=== PATIENT | female | born 1975 | race American Indian/Alaskan Native ===

== ENCOUNTER 2018-04-16 08:05 | Outpatient (CLI) | payer MEDICAID ==
--- NOTE | 2018-04-16 09:06 | Cat Scan Report ---
CT ABDOMEN AND PELVIS WITHOUT CONTRAST INDICATION: Hydronephrosis. Calculus of kidney. COMPARISON: None similar at this institution. FINDINGS: Noncontrast abdomen and pelvis CT performed. LUNG BASES: Minimal lingular and right middle lobe scarring. ABDOMEN: Please note that sensitivity to detect small visceral lesions is limited due to the absence of intravenous or oral contrast. A small, 4-5 mm nonobstructing left renal calculus, axial series 2, image 73. Mild right hydronephrosis with AP renal pelvis diameter of 1.5 cm and proximal hydroureter noted secondary to 2 adjacent stones, individually measuring to the order of 3-4 mm and impacted in the right proximal to mid ureter, anterior to the right psoas muscle. Approximately 4 mm radiopaque gallstone. Otherwise grossly unremarkable unenhanced liver, spleen, pancreas, adrenals, aorta and IVC. Nonopacified GI tract evaluation limited, though grossly nonobstructive. Normal appendix. No ascites or size significant adenopathy. PELVIS: Grossly unremarkable non-opacified urinary bladder, rectosigmoid and uterus/adnexa. Few small pelvic phleboliths. No free fluid or significant adenopathy. Bilateral inguinal canal region mild fatty hernia like prominence as on axial image 182, amongst others. Mild bilateral hip and slight spinal degenerative changes. CONCLUSION: 1. Two 3-4 mm adjacent right proximal to mid ureteral calculi with mild right hydronephrosis noted, as described. 2. A small nonobstructing left upper renal calculus also identified. 3. Few other incidental findings as a small radiopaque gallstone, amongst others. I phoned the above results to Dr. Kam, 8:55 AM, 04/16/2018. Thank you for the opportunity to participate in this patient's care.
== END 2018-04-16 08:06 | disposition home or self-care (01) ==
LOC: CT 08:05
PROVIDERS: ATTEND Urology
DX: N13.30 Unspecified hydronephrosis (principal); M16.0 Bilateral primary osteoarthritis of hip; M46.80 Other specified inflammatory spondylopathies, site unspecified
CPT/HCPCS: 74176

== ENCOUNTER 2018-04-22 11:56 | Day surgery (SDC) | payer MEDICAID ==
[2018-04-22] MEDS ORDERED: ANCEF/STERILE WATER 2 GM/20 ML 2 GM/20 ML SYRINGE IV NR (12:00)
[2018-04-22] MEDS ORDERED: DILAUDID ONE (12:37)
[2018-04-22] MEDS ORDERED: XYLOCAINE MPF 2% ONE (12:37)
[2018-04-22] MEDS ORDERED: DIPRIVAN 10 MG/ML IV ONE (12:37)
[2018-04-22] MEDS ORDERED: ZEMURON IV ONE (12:37)
[2018-04-22] MEDS ORDERED: NACL BACTERIOSTATIC INFILTRATI ONE (13:15)
[2018-04-22] MEDS ORDERED: VERSED IV SCH (13:29)
[2018-04-22] MEDS ORDERED: LACTATED RINGERS 1,000 ML ONE (13:29)
--- NOTE | 2018-04-22 13:29 | Anesthesia Day of Surgery ---
Anesthesia Day of Surgery - Day of Surgery Patient Examined: Yes Patient H&P Reviewed: Yes Patient is NPO: Yes
--- NOTE | 2018-04-22 13:31 | Anesthesia Consultation ---
Anesthesia Consult and Med Hx Date of service: 04/22/18 - Airway Anesthetic Teeth Evaluation: Good ROM Head & Neck: Adequate Mental/Hyoid Distance: Adequate Mallampati Class: Class II Intubation Access Assessment: Probably Good - Pulmonary Exam CTA: Yes - Cardiac Exam Cardiac Exam: RRR - Pre-Operative Health Status ASA Pre-Surgery Classification: ASA2 Proposed Anesthetic Plan: General - Pulmonary Hx Smoking: Yes (1/3 PPD X 15 YRS) Hx Asthma: No Hx Respiratory Symptoms: No Hx Sleep Apnea: No (LEODAN PRE SCREEN LOW RISK.) - Cardiovascular System Hx Hypertension: No Hx Heart Attack/AMI: No - Central Nervous System Hx Neuromuscular Disorder: No Hx Seizures: No CVA: No - Gastrointestinal Hx Gastroesophageal Reflux Disease: Yes (diet controlled; asymptomatic today) - Endocrine Hx Renal Disease: Yes (kidney stones) Hx Liver Disease: No Hx Insulin Dependent Diabetes: No Hx Non-Insulin Dependent Diabetes: No Hx Thyroid Disease: No - Other Systems Hx Cancer: No Hx Obesity: Yes - Additional Comments Anesthesia Medical History Comments: PMH current smoker, kidney stones. No prior anesthetic complications.
[2018-04-22] MEDS ORDERED: ZOFRAN ONE (13:57)
[2018-04-22] MEDS ORDERED: LACTATED RINGERS 1,000 ML IV SCH (14:00)
[2018-04-22] MEDS ORDERED: ROBINUL ONE (14:39)
[2018-04-22] MEDS ORDERED: BLOXIVERZ ONE (14:39)
[2018-04-22] MEDS ORDERED: LASIX ONE (14:40)
--- NOTE | 2018-04-22 14:51 | Post Operative Note ---
Date of procedure: 04/22/18 Pre-op diagnosis: r ureteral stones Post-op diagnosis: same Findings: 2 stones Procedure: cysto ureteroscopy laser stent Anesthesia: GETA Surgeon: NEO JACKSON Estimated blood loss: none Pathology: list (stone) Specimen disposition: given to patient/family Condition: stable Disposition: PACU
--- NOTE | 2018-04-22 14:52 | Discharge Summary ---
Short Stay Discharge Plan Activity: other (no straining ) Weight Bearing Status: Full Weight Bearing Diet: regular, low salt Durable Medical Equipment Needed Upon Discharge: other (has j stnet ) Follow up with: PRIMARY CARE, [Primary Care Provider] - 7 Days NEO JACKSON MD [Staff Physician] - 7 Days
--- NOTE | 2018-04-22 15:34 | Operative Report ---
PREOPERATIVE DIAGNOSIS: Multiple right upper ureteral stone. POSTOPERATIVE DIAGNOSES: Multiple right upper ureteral stone. PROCEDURE: Cystoscopy, right retrograde, right flexible ureteroscopy after we finally were able to get two wires up in the kidney with laser of the distal stone, which was at L3 and partial laser of the proximal stone, which was imbedded underneath the epithelium and insertion of double-J stent. SURGEON: Hunter Kam MD ANESTHESIA: General. FINDINGS: This is a woman with intermittent right flank pain has two upper ureteral stones. Both of them were difficult to see on the x-ray and today we can see one of them. DESCRIPTION OF PROCEDURE: The patient was brought to the operating room and placed on the operating table. Following induction of anesthesia, placed in lithotomy position, prepped and draped in usual sterile fashion. Cystourethroscopy showed no bladder lesions. Bladder was well visualized with 30 and 70 degree lenses. Retrograde showed upper ureteral obstruction narrowing with 2 stones, one was visualized on the psychiatry teacher film. At this point, a flexible ureteroscope was inserted only after we can get the second safety wire in. This took manipulation with an open-ended catheters and finally we had two wires up in the kidney. The flexible ureteroscope was inserted and the distal stone was lasered at 8 dao and it was broken into 4 or 5 pieces. The proximal stone was embedded in the medial aspect of the ureter. Once we were able to with irrigation get rid of a little flap of tissue, we broke it in the center, but did not feel comfortable extracting anything. The patient tolerated the procedure well. At this point, we left a double-J stent 6-Korean, she may need a second stage procedure. We will leave the stent for 2 weeks and then may be bring her back to do a lithotripsy. She was brought to recovery in stable condition. JOB# [id number] WONG/MIRA
[2018-04-22] MEDS ORDERED: DILAUDID IV PRN (15:44)
[2018-04-22 17:23] VITALS: BP 139/89
--- NOTE | 2018-04-22 18:34 | Post Anesthesia Evaluation ---
- Post Anesthesia Evaluation Patient Participated: Yes Airway Patent: Yes Stable Respiratory Function: Yes Nausea/Vomiting: No Temp > 96.8F: Yes Pain Manageable: Yes Adequeate Hydration: Yes Anesthesia Complications: No Block Receding Appropriately: Not Applicable Patient on Ventilator: No
--- NOTE | 2018-04-23 07:54 | Fluoroscopy Report ---
FLUOROSCOPY RETROGRADE UROGRAPHY: HISTORY: Right ureteral stone. FINDINGS: Fluoroscopy was provided by radiology during retrograde urography by the urologist. 6 fluoroscopic images were captured. No left pyelogram images were submitted. The right pyelogram images demonstrate an obstructing stone in the proximal right ureter to the level of L3. Subsequent images demonstrate placement of a right ureteral stent which adequately drains the right collecting system. Per the operative notes, a laser was used to break up the right ureteral stone. Please correlate with the procedural report as needed. IMPRESSION: Right ureteral stone. Right ureteral stent placement.
== END 2018-04-22 17:09 | disposition home or self-care (01) ==
LOC: OR 11:56
PROVIDERS: ATTEND Urology
DX: N20.1 Calculus of ureter (principal); F17.210 Nicotine dependence, cigarettes, uncomplicated; Z88.2 Allergy status to sulfonamides; Z98.890 Other specified postprocedural states
CPT/HCPCS: 52356; 74420; 81025; C1726; C1758; C1769; C2617; J0690; J1170; J2250; J2405; J2704; J2710; J7120; Q9967; J1940

== ENCOUNTER 2018-06-04 09:31 | Day surgery (SDC) | payer MEDICAID ==
[2018-06-04] MEDS ORDERED: SUBLIMAZE IV PRN (10:25)
--- NOTE | 2018-06-04 10:28 | Anesthesia Day of Surgery ---
Anesthesia Day of Surgery - Day of Surgery Patient Examined: Yes Patient H&P Reviewed: Yes Patient is NPO: Yes
--- NOTE | 2018-06-04 10:28 | Anesthesia Consultation ---
Anesthesia Consult and Med Hx Date of service: 06/04/18 - Airway Anesthetic Teeth Evaluation: Good ROM Head & Neck: Adequate Mental/Hyoid Distance: Adequate Mallampati Class: Class II Intubation Access Assessment: Probably Good - Pulmonary Exam CTA: Yes - Cardiac Exam Cardiac Exam: RRR - Pre-Operative Health Status ASA Pre-Surgery Classification: ASA2 Proposed Anesthetic Plan: General - Pulmonary Hx Smoking: Yes (1/3 PPD X 15 YRS) Hx Asthma: No Hx Respiratory Symptoms: No Hx Sleep Apnea: No (LEODAN PRE SCREEN LOW RISK.) - Cardiovascular System Hx Hypertension: No Hx Heart Attack/AMI: No - Central Nervous System Hx Seizures: No CVA: No Hx Back Pain: Yes (from renal stone) - Gastrointestinal Hx Gastroesophageal Reflux Disease: Yes (diet controlled; asymptomatic today) - Endocrine Hx Renal Disease: No Hx Liver Disease: No Hx Insulin Dependent Diabetes: No Hx Thyroid Disease: No - Other Systems Hx Obesity: Yes - Additional Comments Anesthesia Medical History Comments: No prior anesthetic complications. Previous easy intubation. Will plan GA with LMA today.
[2018-06-04] MEDS ORDERED: SUBLIMAZE ONE ×2 (10:46→12:39)
[2018-06-04] MEDS ORDERED: XYLOCAINE MPF 2% ONE (10:46)
[2018-06-04] MEDS ORDERED: DIPRIVAN 10 MG/ML IV ONE (10:47)
[2018-06-04] MEDS ORDERED: VERSED IV NR (11:00)
[2018-06-04] MEDS ORDERED: ANCEF/STERILE WATER 2 GM/20 ML IV NR (11:00)
[2018-06-04] MEDS ORDERED: LACTATED RINGERS 1,000 ML IV SCH (11:00)
[2018-06-04] MEDS ORDERED: ANCEF/STERILE WATER 2 GM/20 ML 2 GM/20 ML SYRINGE IV NR (12:00)
[2018-06-04] MEDS ORDERED: ZOFRAN ONE (12:11)
[2018-06-04] MEDS ORDERED: DECADRON ONE (12:11)
[2018-06-04] MEDS ORDERED: OMNIPAQUE 300 MG/50 ML (CATH LAB) IV ONE (12:17)
--- NOTE | 2018-06-04 12:46 | Post Operative Note ---
Date of procedure: 06/04/18 Pre-op diagnosis: r upper ureteral stones Post-op diagnosis: same Findings: as above Procedure: cysto dil rpg ureteroscopy laser j stent Anesthesia: TETE Surgeon: NEO JACKSON Estimated blood loss: none Pathology: none Condition: stable Disposition: PACU
--- NOTE | 2018-06-04 12:48 | Discharge Summary ---
Short Stay Discharge Plan Activity: other (no straining ) Weight Bearing Status: Full Weight Bearing Diet: low fat, low salt Special Instructions: other (inc fluids has stent ) Durable Medical Equipment Needed Upon Discharge: other (j stent ) Follow up with: CELINA CRANE MD [Primary Care Provider] - 7 Days NEO JACKSON MD [Staff Physician] - 10 Days
--- NOTE | 2018-06-04 13:15 | Operative Report ---
PREOPERATIVE DIAGNOSIS: Multiple right upper ureteral stone. POSTOPERATIVE DIAGNOSIS: Multiple right upper ureteral stone. PROCEDURE: Second stage ureteroscopy. SURGEON: Hunter Kam MD ANESTHESIA: General. FINDINGS: This is a woman who had 2 significant stones in the upper ureter. The first one, we were able to get. The second one was imbedded in the epithelium, we left the stent, for which she now presents for second stage. DESCRIPTION OF PROCEDURE: The patient was brought to the operating room and placed on the operating table. Following induction of anesthesia, placed in lithotomy position, prepped and draped in usual sterile fashion. Cystourethroscopy showed the stent and it was partially withdrawn, a wire coiled in the kidney. Using the double access ureteral catheter, a second wire coiled in the kidney. Flexible ureteroscopy showed this to be tight, so we used the access sheath just the inner core and we were able to dilate that area to see the stone well. The stone was freed off the epithelium and lasered at 8 dao. Some fragments went up in the kidney, which were lasered in the kidney. The patient tolerated the procedure well. A 7-Scottish double J coiled in the kidney in good position. The patient tolerated the procedure well. There were no family members there. She was brought to recovery in stable condition with a 7-Scottish double J in good position. JOB# [id number] WONG/MIRA
--- NOTE | 2018-06-04 13:27 | Post Anesthesia Evaluation ---
- Post Anesthesia Evaluation Patient Participated: Yes Airway Patent: Yes Stable Respiratory Function: Yes Nausea/Vomiting: No Temp > 96.8F: Yes Pain Manageable: Yes Adequeate Hydration: Yes Anesthesia Complications: No
[2018-06-04 15:14] VITALS: BP 125/80
--- NOTE | 2018-06-05 07:49 | Fluoroscopy Report ---
FLUOROSCOPY RETROGRADE UROGRAPHY: HISTORY: Right ureteral stone. FINDINGS: Fluoroscopy was provided by radiology during retrograde urography by the urologist. 7 fluoroscopic images were captured. The images demonstrate removal of a right ureteral stone with use of a laser. Right ureteroscopy was performed per the operative note. Right ureteral stent exchange was also performed which adequately drains the right collecting system on the final image. No images of the left retrograde pyelogram were saved. IMPRESSION: Right ureteral stone removal. Right ureteral stent replacement.
== END 2018-06-04 15:13 | disposition home or self-care (01) ==
LOC: OR 09:31
PROVIDERS: ATTEND Urology
DX: N20.1 Calculus of ureter (principal); G47.30 Sleep apnea, unspecified; K21.9 Gastro-esophageal reflux disease without esophagitis; F17.200 Nicotine dependence, unspecified, uncomplicated; E66.9 Obesity, unspecified; Z68.33 Body mass index [BMI] 33.0-33.9, adult; Z79.899 Other long term (current) drug therapy; Z88.1 Allergy status to other antibiotic agents; Z88.2 Allergy status to sulfonamides; Z98.891 History of uterine scar from previous surgery; Z98.890 Other specified postprocedural states
CPT/HCPCS: 52356; 74420; 81025; 88300; C1726; C1758; C1769; C2617; J0690; J1100; J2250; J2405; J2704; J3010; J7120; Q9967; 88302